=== PATIENT | female | born 1995 | race Caucasian/White ===

== ENCOUNTER 2019-07-16 13:25 | Inpatient (IN) | payer OTHER ==
[2019-07-16 14:50] VITALS: BMI 31.5
[2019-07-16] MEDS ORDERED: AMPICILLIN - 2 GM in SODIUM CHLORIDE 100 ML IVPB ONE (14:51)
[2019-07-16] MEDS ORDERED: ELECTROLYTE-148 SOLN 1,000 ML IV SCH (15:00)
[2019-07-16 15:10] LABS: BASO % 0.3 % (0-2.0); HEMATOCRIT 36.9 % (32.4-45.2); HEMOGLOBIN 12.2 GM/dL (10.7-15.3); LYMPH % 7.3 % (8-40); MCH 29.8 pg (25.7-33.7); MCHC 33.1 g/dl (32.0-36.0); MEAN PLT VOLUME 10.2 fl (7.5-11.1); MONO % 2.9 % (3.8-10.2); NEUT % 89.5 % (42.8-82.8); PLATELET COUNT 275 K/MM3 (134-434); RDW 14.9 % (11.6-15.6); WHITE BLOOD COUNT 13.1 K/mm3 (4.0-10.0)
[2019-07-16] MEDS ORDERED: FENTANYL/BUPIVACAINE/NS/PF - PCEA - 50 ML DISP.SYRIN EP ONE ×2 (15:20→19:09)
[2019-07-16 15:27] LABS: INR 0.91 (0.83-1.09); PROTHROMBIN TIME (PATIENT) 10.7 SEC (9.7-13.0)
[2019-07-16 15:30] LABS: ACTIVATED PTT 25.1 SECONDS (25.2-36.5)
[2019-07-16 15:40] LABS: ALBUMIN 2.6 g/dl (3.4-5.0); BILIRUBIN,TOTAL 0.2 mg/dL (0.2-1); BLOOD UREA NITROGEN 9.5 mg/dL (7-18); CALCIUM 8.3 mg/dL (8.5-10.1); CREATININE 0.7 mg/dL (0.55-1.3); POTASSIUM 3.9 mmol/L (3.5-5.1); TOT PROT 6.6 g/dl (6.4-8.2)
--- NOTE | 2019-07-16 15:41 | HP ---
Past Medical History - Primary Care Physician PCP:: Zonia Chew - Admission Chief Complaint: 23 yrs , 41 weeks gestation brought by ambulence inlabor . onset LP since 11.00 Pm 07/15/19 History of Present Illness: pt gas care at [facility] in [place] . wt gain 48 lbs no chart available attempts made to obtain records unsuccessful pt has no information about her reports h/o sonogram. Single fetus , cephalic presentation she went at 2.[address] [facility] for labor evaluation, she was sent home due to early labor , 2cmm, she was told , she was dehydrated she gives h/o planned induction of labor for date 07/19/19 History Source: Patient - Past Medical History ALIGNER: Yes: Other (none known) Cardiovascular: Yes: Other (declines) Pulmonary: Yes: Other (none) Gastrointestinal: Yes: Other (none known to her) Hepatobiliary: Yes: Other (not awre any) Renal/: Yes: Other (denies any problems) Reproductive: Yes: Other (none known) ...: 1 ...Para: 0 ...Term: 0 ...: 0 ...Spon : 0 ...Induced : 0 ...Multiple Gestation: 0 ... Weeks Gestation by Dates: 40.6 ...EDC by Dates: 07/10/19 Heme/Onc: Yes: Other (none known) Infectious Disease: Yes: Other (not known) Musculoskeletal: Yes: Other (declines) Rheumatology: Yes: Other (no) Endocrine: Yes: Other (no) Dermatology: Yes: Other (none known) - Past Surgical History Past Surgical History: Yes: None Hx Myomectomy: No Hx Transabdominal Cerclage: No - Smoking History Smoking history: Never smoked Have you smoked in the past 12 months: No - Alcohol/Substance Use Hx Alcohol Use: No History of Substance Use: reports: None - Social History History of Recent Travel: No Home Medications - Allergies Allergies/Adverse Reactions: Allergies Allergy/AdvReac Type Severity Reaction Status Date / Time No Known Allergies Allergy Verified 07/16/19 14:32 - Home Medications Home Medications: Ambulatory Orders Prenat 115/Iron Fum/Folic/Dss [ 19 Tablet] 1 tab PO DAILY 07/16/19 Physical Exam - Maternity Vital Signs: Vital Signs Temperature 98.5 F 07/16/19 14:40 Pulse Rate 106 H 07/16/19 14:40 Respiratory Rate 17 07/16/19 14:40 Blood Pressure 130/85 07/16/19 14:40 O2 Sat by Pulse Oximetry (%) Selected Entries 07/16/19 14:34 Weight 178 lb Constitutional: Yes: Well Nourished Eyes: Yes: WNL HENT: Yes: WNL Neck: Yes: WNL Cardiovascular: Yes: WNL, Regular Rate and Rhythm Lungs: Clear to auscultation Breast(s): Yes: WNL - Abdominal Exam/OB Fundal Height: 40 Number of Fetuses: Single Presentation: Vertex Contractions: Yes Regularity: Regular (2-4 min) Intensity: Mod/Strong Monitor Mode: External Heart Rate (range): 140-150 Heart Rate Location: [facility] Category: I Accelerations: Uniform Decelerations: None - Vaginal Exam/OB Vaginal Bleediing: No Speculum Exam: No Dilatation (cm): 5 Effacement (%): 100 Amniotic Membrane Status: Intact Presentation: Vertex/Position (exam at 2.00 PM) Station: -2 - Physical Exam Musculoskeletal: Yes: WNL Extremities: Yes: WNL. No: Calf Tenderness Edema: Yes Edema: LLE: 1+, RLE: 1+ Deep Tendon Reflex Grade: Normal +2 ...Motor Strength: WNL Psychiatric: Yes: WNL, Alert, Oriented - Labs Lab Results: CBC, BMP 07/16/19 14:55 Laboratory Tests 07/16/19 07/16/19 07/16/19 14:17 14:55 14:55 PT with INR 10.70 INR 0.91 PTT (Actin FS) 25.1 L Sodium 136 Potassium 3.9 Chloride 106 Carbon Dioxide 19 L BUN 9.5 Creatinine 0.7 Random Glucose 108 H AST 13 L ALT 12 L Total Protein 6.6 Albumin 2.6 L HIV 1&2 Antibody Screen Negative HIV P24 Antigen Negative Problem List - Problems (1) Post-term , 40-42 weeks of gestation Code(s): O48.0 - POST-TERM (2) with care elsewhere Code(s): Z34.90 - ENCNTR FOR SUPRVSN OF NORMAL , UNSP, UNSP TRIMESTER Qualifiers: Trimester: unspecified trimester Qualified Code(s): Z34.90 - Encounter for supervision of normal , unspecified, unspecified trimester (3) Labor established Code(s): KPI7638 - Assessment/Plan 23 yrs ,41 weeks gestation in active labor, gbs unknown , care elsewhere( [facility] } Plan Gbs prophylaxis with Ampicillin epidural for labor analgesia trial vaginal delivery
[2019-07-16] MEDS ORDERED: FENTANYL/BUPIVACAINE/NS/PF - PCEA - 50 ML DISP.SYRIN EP SCH (17:00)
[2019-07-16] MEDS ORDERED: OXYTOCIN 30 UNITS in 0.9% NS 30 UNIT/500 ML INFUS.BAG IVPB SCH (17:00)
[2019-07-16] MEDS ORDERED: OXYTOCIN 30 UNITS in 0.9% NS 30 UNIT/500 ML INFUS.BAG IVPB ONE (17:07)
[2019-07-16 17:30] LABS: EPI CELLS 4.8 /HPF (0-5/HPF); HYALINE CASTS 12 /lpf (0-8); PH,URINE 6.5 (5.0-8.0); URINE APPEARANCE CLEAR; URINE BACTERIA 2.6 /hpf (NEGATIVE); URINE BILIRUBIN NEGATIVE (NEGATIVE); URINE COLOR YELLOW; URINE GLUCOSE (UA) NEGATIVE (NEGATIVE); URINE KETONE 1+ (NEGATIVE); URINE LEUK ESTERASE NEGATIVE (NEGATIVE); URINE NITRITE NEGATIVE (NEGATIVE); URINE PROTEIN 1+ (NEGATIVE); URINE RBC 2 /hpf (0-4); URINE UROBILINOGEN 0.2 mg/dL (0.2-1.0); URINE WBC 0 /hpf (0-5)
[2019-07-16 17:43] LABS: COCAINE, UR NEGATIVE ng/ml (CUTOFF=300); METHADONE, UR NEGATIVE ng/ml (CUTOFF=300); OPIATES, URI NEGATIVE ng/ml (CUTOFF=300); PHENCYCLIDINE,URINE NEGATIVE ng/ml (CUTOFF=25); URINE AMPHETAMINES NEGATIVE ng/ml (CUTOFF=500); URINE BARBITURATES NEGATIVE ng/ml (CUTOFF=200); URINE BENZODIAZEPINES NEGATIVE ng/ml (CUTOFF=200)
[2019-07-16] MEDS ORDERED: AMPICILLIN SODIUM 1 GM VIAL ONE ×2 (18:05→22:31)
--- NOTE | 2019-07-16 18:48 | PN ---
Progress Note, Labor Vaginal Exam #1 Labor Exam Date: 07/16/19 Labor Exam Time: 18:15 Heart Rate (range): 130 Dilatation: 7-8 Effacement (%): 100 Amniotic Membrane Status: Intact Presentation: Vertex/Position Station: -1 Remarks: fhr cat-1 uc 2 min -3 min epidural given at 3.40 pM Pitocin augmentation started at 5.[address] iv ampicillin prophylaxis plan ct trial of labor Selected Entries 07/16/19 07/16/19 14:40 18:15 Temperature 98.5 F Pulse Rate 76 Blood Pressure 138/76 Vaginal Exam #2 Labor Exam Date: 07/16/19 Labor Exam Time: 19:30 Heart Rate (range): 150 Dilatation: 9 Effacement (%): 100 Amniotic Membrane Status: Ruptured (arom clear light meconium) Presentation: Vertex/Position Station: 0 (0/+1) Remarks: uc q 2 min fhr cat-1 Selected Entries 07/16/19 07/16/19 19:35 19:45 Temperature Oral Source Pulse Rate 91 H Blood Pressure 132/73 Selected Entries 07/16/19 19:35 Temperature 98.9 F Vaginal Exam #3 Labor Exam Date: 07/16/19 Labor Exam Time: 20:12 Heart Rate (range): 150 Dilatation: 10 Effacement (%): 100 Amniotic Membrane Status: Ruptured Presentation: Vertex/Position Station: +2 Remarks: pt pushing Selected Entries 07/16/19 20:15 Pulse Rate 102 H Blood Pressure 133/81
[2019-07-16] MEDS ORDERED: AMPICILLIN - 1 GM in SODIUM CHLORIDE 100 ML IVPB SCH (18:51)
[2019-07-16] MEDS ORDERED: OXYTOCIN 20 UNITS in 0.9% NS 20 UNIT/1,000 ML INFUS.BAG IV ONE (20:23)
[2019-07-16] MEDS ORDERED: LIDOCAINE HCL 1% PRESERVATIVE FREE - 30ML VIAL ONE (20:28)
--- NOTE | 2019-07-16 21:28 | PN ---
Delivery - Delivery Vaginal Delivery: No Problems, Spontaneous ( vx, mi psition, cord around neckx1 released , before delivery of shoulder , oral & nasal suction done at perineum before delivery of shoulder . median episiotomy was given under local anesthesia , placenta & membranes delievered completely , cord segment was collected for cord gas, cord blood collected , trivascular cord. episiotomy was sutured in layers with chr catgut #2/0 .pr exam mucosa & sphincter was intact) Type of Anesthesia: Epidural EBL (cc): 350 (rodarte removed after pt started pushing, output 600 ml ) Delivery, Single - Stages of Labor Date 1st Stage Initiatied: 07/16/19 Time 1st Stage Initiated: 05:00 Date 2nd Stage Initiated: 07/16/19 Time 2nd Stage Initiated: 20:12 Date of Delivery: 07/16/19 Time of Delivery: 20:37 Date Placenta Delivered: 07/16/19 Time Placenta Delivered: 20:44 Placenta: Yes: Spontaneous, Uterine Exploration - Condition of Production Controller/Delinquency Prevention Officer Present: No Gender: Female Weight: 7 lb 7 oz Position: Left, OA (cord around neckx1) Total Hours ROM (Hrs/Mins): , [id number], Mec - 1 Minute Total Score: 9 5 Minutes Total Score: 9 - [place] Feeding Plan Initial Plan: Exclusive throughout hospitalization Remarks - Remarks Remarks: 23 yrs 41 weeks , gbs [place] , no chart available, pnc at [facility] gbs prophylaxis with Iv Ampicillin x2 doses given intrapartum course uneventful
[2019-07-16] MEDS ORDERED: METHYLERGONOVINE MALEATE 0.2 MG/1 ML AMP IM PRN (21:31)
[2019-07-16] MEDS ORDERED: oxyCODONE HCL 5 MG TABLET PO PRN (21:31)
[2019-07-16] MEDS ORDERED: BENZOCAINE 28 GM HEMORRHOIDAL OINTMENT TP PRN (21:31)
[2019-07-16] MEDS ORDERED: BENZOCAINE 20% 57 GM BOTTLE TP PRN (21:31)
[2019-07-16] MEDS ORDERED: BISACODYL 10 MG SUPP.RECT RC PRN (21:31)
[2019-07-16] MEDS ORDERED: WITCH HAZEL 50% (TUCKS) 40 PAD/JAR PAD TP PRN (21:31)
[2019-07-16] MEDS ORDERED: OXYTOCIN 20 UNITS in 0.9% NS 20 UNIT/1,000 ML INFUS.BAG IV SCH (21:45)
[2019-07-17] MEDS: IBUPROFEN 600 MG TABLET (FP) PO PRN ×2 (03:24→21:33)
[2019-07-17] MEDS: ACETAMINOPHEN 325 MG TABLET (FP) PO PRN ×2 (03:25→21:32)
[2019-07-17 08:10] LABS: BASO % 0.3 % (0-2.0); EOS % 0.2 % (0-4.5); HEMATOCRIT 28.4 % (32.4-45.2); HEMOGLOBIN 9.3 GM/dL (10.7-15.3); LYMPH % 15.1 % (8-40); MCH 29.9 pg (25.7-33.7); MCHC 32.6 g/dl (32.0-36.0); MEAN CELL VOLUME 91.7 fl (80-96); MEAN PLT VOLUME 9.9 fl (7.5-11.1); MONO % 7.9 % (3.8-10.2); NEUT % 76.5 % (42.8-82.8); PLATELET COUNT 218 K/MM3 (134-434); RDW 15.1 % (11.6-15.6); WHITE BLOOD COUNT 12.8 K/mm3 (4.0-10.0)
--- NOTE | 2019-07-17 08:34 | PN ---
Post Progress Note - Subjective Subjective: c/o cramps perineal soreness voiding without difficulty Post Day: 1 Type of Delivery: Vital Signs: Vital Signs Temperature 98.1 F 07/17/19 06:00 Pulse Rate 109 H 07/17/19 06:00 Respiratory Rate 18 07/17/19 06:00 Blood Pressure 110/64 07/17/19 06:00 O2 Sat by Pulse Oximetry (%) 100 07/16/19 20:15 Breast Exam: Yes: Soft, Other (atempting BF). No: Engorged Uterus: Yes: Fundus Firm, Fundus below umbilicus, Non-tender Lochia: Yes: Rubra Lochia, amount: Moderate Extremities: Yes: Calves non-tender Perineum: Yes: Episiotomy (wound clean ) Activity: Ambulating - Labs Labs: CBC WBC 13.1 K/mm3 (4.0-10.0) H 07/16/19 14:55 RBC 4.10 M/mm3 (3.60-5.2) 07/16/19 14:55 Hgb 12.2 GM/dL (10.7-15.3) 07/16/19 14:55 Hct 36.9 % (32.4-45.2) 07/16/19 14:55 MCV 90.0 fl (80-96) 07/16/19 14:55 MCH 29.8 pg (25.7-33.7) 07/16/19 14:55 MCHC 33.1 g/dl (32.0-36.0) 07/16/19 14:55 RDW 14.9 % (11.6-15.6) 07/16/19 14:55 Plt Count 275 K/MM3 (134-434) 07/16/19 14:55 MPV 10.2 fl (7.5-11.1) 07/16/19 14:55 Absolute Neuts (auto) 11.7 K/mm3 (1.5-8.0) H 07/16/19 14:55 Neutrophils % 89.5 % (42.8-82.8) H 07/16/19 14:55 Lymphocytes % 7.3 % (8-40) L 07/16/19 14:55 Monocytes % 2.9 % (3.8-10.2) L 07/16/19 14:55 Eosinophils % 0.0 % (0-4.5) 07/16/19 14:55 Basophils % 0.3 % (0-2.0) 07/16/19 14:55 Nucleated RBC % 0 % (0-0) 07/16/19 14:55 Problem List - Problems (1) Post-term , 40-42 weeks of gestation Code(s): O48.0 - POST-TERM (2) with care elsewhere Code(s): Z34.90 - ENCNTR FOR SUPRVSN OF NORMAL , UNSP, UNSP TRIMESTER Qualifiers: Trimester: unspecified trimester Qualified Code(s): Z34.90 - Encounter for supervision of normal , unspecified, unspecified trimester (3) Labor established Code(s): DXA5983 - (4) (normal spontaneous vaginal delivery) Code(s): O80 - ENCOUNTER FOR FULL-TERM UNCOMPLICATED DELIVERY (5) Encounter for care and examination after delivery Code(s): Z39.2 - ENCOUNTER FOR ROUTINE FOLLOW-UP Assessment/Plan stable ct pp care discharge tomorrow.
[2019-07-17] MEDS: PRENATAL VITAMINS W/ FOLIC ACID TABLET (FP) PO SCH (09:32)
[2019-07-17] MEDS: FERROUS SO4 325 MG TABLET (FP) PO SCH ×2 (09:32→18:02)
[2019-07-17] MEDS ORDERED: SENNOSIDES/DOCUSATE COMBO (SENNA PLUS) TABLET (UD) PO PRN (22:00)
--- NOTE | 2019-07-18 08:37 | DS ---
Physical Exam-WEEKDAY BABYSITTER Vital Signs: Vital Signs Temperature 98.3 F 07/17/19 22:00 Pulse Rate 89 07/17/19 22:00 Respiratory Rate 18 07/17/19 22:00 Blood Pressure 113/67 07/17/19 22:00 O2 Sat by Pulse Oximetry (%) 100 07/16/19 20:15 Constitutional: Yes: Well Nourished, Other (no c/o dizziness) Eyes: Yes: WNL HENT: Yes: WNL Neck: Yes: WNL Cardiovascular: Yes: WNL Respiratory: Yes: WNL Gastrointestinal: Yes: WNL ...Rectal Exam: Yes: WNL Renal/: Yes: WNL. No: CVA Tenderness - Left, CVA Tenderness - Right Pelvis: Yes: WNL ....Post : Yes: Uterus firm, Moderate lochia rubra (perineum epi wound healing) Breast(s): Yes: WNL (BF , soft, not engorged) Musculoskeletal: Yes: WNL Extremities: Yes: WNL. No: Calf Tenderness Edema: Yes Edema: LLE: 1+, RLE: 1+ Neurological: Yes: WNL ...Motor Strength: WNL Psychiatric: Yes: WNL, Alert, Oriented Labs: CBC, BMP 07/17/19 07:31 07/16/19 14:17 Delivery - Delivery Vaginal Delivery: No Problems, Spontaneous ( vx, mi psition, cord around neckx1 released , before delivery of shoulder , oral & nasal suction done at perineum before delivery of shoulder . median episiotomy was given under local anesthesia , placenta & membranes delievered completely , cord segment was collected for cord gas, cord blood collected , trivascular cord. episiotomy was sutured in layers with chr catgut #2/0 .pr exam mucosa & sphincter was intact) Type of Anesthesia: Epidural Episiotomy/Laceration: Midline EBL (cc): 350 (rodarte removed after pt started pushing, output 600 ml ) Delivery, Single - Stages of Labor Date 1st Stage Initiatied: 07/16/19 Time 1st Stage Initiated: 05:00 Date 2nd Stage Initiated: 07/16/19 Time 2nd Stage Initiated: 20:12 Date of Delivery: 07/16/19 Time of Delivery: 20:37 Time Placenta Delivered: 20:44 Placenta: Yes: Spontaneous, Uterine Exploration - Condition of Infant Plisse Machine Operator/Bail Bond Agent Present: No Gender: Female Weight: 7 lb 7 oz Position: Left, OA (cord around neckx1) Total Hours ROM (Hrs/Mins): , [id number], Mec - 1 Minute Total Score: 9 5 Minutes Total Score: 9 - [place] Feeding Plan Initial Plan: Exclusive throughout hospitalization Remarks - Remarks Remarks: 23 yrs 41 weeks , gbs [place] , no chart available, pnc at [facility] gbs prophylaxis with Iv Ampicillin x2 doses given intrapartum course uneventful pp course uneventful anemia counselled pericare instructions given Discharge Summary Problems reviewed: Yes Reason For Visit: LABOR ADMIT Current Active Problems Encounter for care and examination after delivery (Acute) Labor established (Acute) (normal spontaneous vaginal delivery) (Acute) Post-term , 40-42 weeks of gestation (Acute) with care elsewhere (Acute) Procedures: Principal: Hospital Course: uneventful Health Concerns: anemia Plan of Treatment: as directed Goals: maternal & well being Condition: Good - Instructions Diet, Activity, Other Instructions: Post Instructions DIET: Continue good diet high in protein, calcium, and iron rich foods. Drink at least eight (8) glasses of water daily in addition to other fluids. ct Regular diet MEDICATIONS: Continue vitamins and iron as previously directed. Motrin and Tylenol may be taken for minor discomfort. ACTIVITY: Mild to moderate exercise may be started in two (2) weeks. Take frequent rest periods. Resume normal activity after six (6) week check up. WOUND CARE OF OPERATIVE SITE: Continue use of perineal bottle until vaginal discharge stops. Keep area clean. Shower daily. Keep abdominal wound dry. Report any drainage or redness to physician. Tub baths, tampons and douches are not permitted for 6 weeks. PERICARE : SITZ BATHS tid prn ct Breast feeding & or Bottle feeding BREAST CARE: (For those that are not breast feeding): If engorgement occurs: Wear tight fitting bra. Take Tylenol or Motrin for pain. Apply cold packs (ice in bags to each breast ) FAMILY PLANNING: There are many control alternatives to pursue and they should be discussed at your first office visit. You may resume sexual activity after your six (6) week check up. (Remember, breast feeding is not a contraceptive) NEXT PHYSICIAN APPOINTMENT: Be certain to call for a four (4) week appointment, unless otherwise directed. RTC , 2 anselmo [facility] Call [phone] for appt Call Clinic or got to Emergency Dept if you have any of the following: Heavy vaginal bleeding Painful urination Leg pain Unusual odor noted to vaginal bleeding High fever Red streaking noted on breast Referrals: Zonia Chew MD [Staff Physician] - Disposition: HOME - Home Medications Comprehensive Discharge Medication List: Ambulatory Orders Prenat 115/Iron Fum/Folic/Dss [ 19 Tablet] 1 tab PO DAILY 07/16/19 Acetaminophen [Tylenol .Regular Strength -] 650 mg PO Q3H PRN tablet 07/17/19 Benzocaine [Americaine 20% [place] -] 1 spray TP PRN PRN #1 bottle 07/17/19 Ferrous Sulfate [Feosol] 325 mg PO BIDWM #60 tab 07/17/19 Ibuprofen [Motrin -] 200 mg PO Q4H PRN tablet 07/17/19 Vitamins (Sjr) - 1 tab PO DAILY #30 tablet 07/17/19 Sennosides/Docusate Sodium [Pericolace -] 2 tablet PO HS PRN #60 tablet Witch Barbara 50% (Tucks) [Tucks Pads -] 1 pad TP PRN PRN #1 pack 07/17/19 Prescription Drug Monitoring Program (I-STOP) results: I-STOP reviewed and no issues identified
[2019-07-18 08:38] VITALS: BP 111/62; PULSE 81; TEMP 97.8
[2019-07-18] MEDS: PRENATAL VITAMINS W/ FOLIC ACID TABLET (FP) PO SCH (09:20)
[2019-07-18] MEDS: FERROUS SO4 325 MG TABLET (FP) PO SCH (09:21)
== END 2019-07-18 12:45 | disposition home or self-care (01) | DRG 560 ==
LOC: JDEL 13:25 → JLDR 14:08 → J3W 22:58
PROVIDERS: ADMIT Obstetrics & Gynecology; ATTEND Obstetrics & Gynecology
PROC: 0W8NXZZ Division of Female Perineum, External Approach (ICD-10-PCS; principal; 2019-07-16)
PROC: 10E0XZZ Delivery of Products of Conception, External Approach (ICD-10-PCS; 2019-07-16)
DX: O48.0 Post-term pregnancy (principal); Z3A.41 41 weeks gestation of pregnancy; O69.81X0 Labor and delivery complicated by cord around neck, without compression, not applicable or unspecified; Z37.0 Single live birth
CPT/HCPCS: 36415; 36600; 59409; 80048; 80053; 80307; 81003; 82803; 85025; 85610; 85730; 86593; 86762; 86850; 86900; 86901; 87340; 87389

== ENCOUNTER 2021-04-19 13:36 | Emergency (ER) | payer OTHER ==
[2021-04-19 14:02] VITALS: BP 117/76; PULSE 76; TEMP 98.5; BMI 31.1
[2021-04-20 14:07] LABS: SARS-CoV-2 NAA Not Detected (Not Detected)
== END 2021-04-19 15:25 | disposition home or self-care (01) ==
LOC: JER 13:36
DX: R05 Cough (principal); R51.9 Headache, unspecified; J02.9 Acute pharyngitis, unspecified; Z11.52 Encounter for screening for COVID-19
CPT/HCPCS: 99283-25; C9803; U0003; U0005

== ENCOUNTER 2021-10-09 09:37 | Emergency (ER) | payer OTHER ==
[2021-10-09 09:52] VITALS: BP 127/82; PULSE 96; TEMP 98.9; BMI 30.5
[2021-10-09] MEDS ORDERED: KETOROLAC TROMETHAMINE 30 MG/1 ML VIAL ONE (10:41)
[2021-10-09] MEDS ORDERED: KETOROLAC TROMETHAMINE 60 MG/2 ML VIAL IM ONE (10:41)
[2021-10-09 12:11] LABS: EPI CELLS >36 /uL (0-25.1); HYALINE CASTS 1 /uL (0-3.1); PH,URINE 6.5 (5.0-8.0); URINE APPEARANCE CLEAR; URINE BACTERIA 3508 /uL (0-1359); URINE BILIRUBIN NEGATIVE (NEGATIVE); URINE COLOR YELLOW; URINE GLUCOSE (UA) NEGATIVE (NEGATIVE); URINE KETONE NEGATIVE (NEGATIVE); URINE LEUK ESTERASE TRACE (NEGATIVE); URINE NITRITE NEGATIVE (NEGATIVE); URINE PROTEIN NEGATIVE (NEGATIVE); URINE RBC 20 /uL (0-23.9); URINE UROBILINOGEN 0.2 mg/dL (0.2-1.0); URINE WBC 24 /uL (0-25.8)
[2021-10-09 12:25] LABS: HCG,QUALITATIVE URINE NEGATIVE
== END 2021-10-09 13:14 | disposition home or self-care (01) ==
LOC: JERFT 09:37
PROC: 3E023NZ Introduction of Analgesics, Hypnotics, Sedatives into Muscle, Percutaneous Approach (ICD-10-PCS; principal; 2021-10-09)
DX: M54.50 Low back pain, unspecified (principal)
CPT/HCPCS: 36415; 81003; 84703; 87086; 87491; 87591; 99284-25

== ENCOUNTER 2023-04-26 13:17 | Emergency (ER) | payer OTHER ==
[2023-04-26 13:39] VITALS: TEMP 98.1; BMI 28.0
[2023-04-26] MEDS ORDERED: LORazepam 2 MG TABLET PO ONE (14:02)
[2023-04-26] MEDS ORDERED: LORazepam 1 MG TABLET ONE (14:30)
[2023-04-26 15:29] LABS: BASO % 0.4 % (0-2.0); EOS % 0.4 % (0-4.5); HEMATOCRIT 40.7 % (32.4-45.2); HEMOGLOBIN 14.3 GM/dL (10.7-15.3); LYMPH % 23.6 % (8-40); MCH 29.6 pg (25.7-33.7); MEAN CELL VOLUME 84.6 fl (80-96); MEAN PLT VOLUME 9.1 fl (7.5-11.1); NEUT % 70.6 % (42.8-82.8); PLATELET COUNT 382 10^3/uL (134-434); RBC 4.82 M/mm3 (3.60-5.2); RDW 13.2 % (11.6-15.6); WHITE BLOOD COUNT 7.9 K/mm3 (4.0-10.0)
[2023-04-26 15:52] LABS: POTASSIUM 3.9 mmol/L (3.5-5.1)
[2023-04-26 15:56] LABS: BLOOD UREA NITROGEN 11.1 mg/dL (7-18)
[2023-04-26 15:59] LABS: CREATININE 0.9 mg/dL (0.55-1.3)
[2023-04-26 16:00] LABS: BILIRUBIN,TOTAL 0.2 mg/dL (0.2-1); TOT PROT 8.2 g/dl (6.4-8.2)
[2023-04-26 16:29] VITALS: BP 109/76; PULSE 96; RESP 17
== END 2023-04-26 16:41 | disposition home or self-care (01) ==
LOC: JER 13:17
DX: F41.9 Anxiety disorder, unspecified (principal); R07.9 Chest pain, unspecified; R00.0 Tachycardia, unspecified
CPT/HCPCS: 36415; 80053; 84484; 85025; 99283-25

== ENCOUNTER 2024-02-25 11:22 | Emergency (ER) | payer OTHER ==
[2024-02-25 11:40] VITALS: BMI 29.0
[2024-02-25] MEDS ORDERED: ACETAMINOPHEN 325 MG TABLET (FP) ONE (12:52)
[2024-02-25] MEDS ORDERED: METOCLOPRAMIDE HCL INJECTION 10 MG/2 ML VIAL ONE (12:52)
[2024-02-25 12:56] LABS: URINE APPEARANCE CLEAR; URINE BILIRUBIN NEGATIVE (NEGATIVE); URINE COLOR YELLOW; URINE GLUCOSE (UA) NEGATIVE (NEGATIVE); URINE KETONE NEGATIVE (NEGATIVE); URINE LEUK ESTERASE NEGATIVE (NEGATIVE); URINE NITRITE NEGATIVE (NEGATIVE); URINE PROTEIN NEGATIVE (NEGATIVE); URINE UROBILINOGEN 0.2 mg/dL (0.2-1.0)
[2024-02-25 12:57] LABS: BASO % 0.7 % (0-2.0); EOS % 0.4 % (0-4.5); HCG,QUALITATIVE URINE Negative; HEMATOCRIT 37.9 % (32.4-45.2); HEMOGLOBIN 12.7 GM/dL (10.7-15.3); LYMPH % 22.9 % (8-40); MCH 28.3 pg (25.7-33.7); MCHC 33.5 g/dl (32.0-36.0); MEAN CELL VOLUME 84.5 fl (80-96); PLATELET COUNT 360 10^3/uL (134-434); RBC 4.49 M/mm3 (3.60-5.2); RDW 13.9 % (11.6-15.6); WHITE BLOOD COUNT 7.5 K/mm3 (4.0-10.0)
[2024-02-25] MEDS: METOCLOPRAMIDE HCL INJECTION 10 MG/2 ML VIAL IVPUSH ONE (12:57)
[2024-02-25] MEDS: SODIUM CHLORIDE 0.9% 500 ML INFUS.BAG IV ONE (12:57)
[2024-02-25] MEDS: ACETAMINOPHEN 325 MG TABLET (FP) PO ONE (12:57)
[2024-02-25 13:12] LABS: POTASSIUM 4.6 mmol/L (3.5-5.1)
[2024-02-25 13:15] LABS: CALCIUM 9.5 mg/dL (8.5-10.1)
[2024-02-25 13:16] LABS: ALBUMIN 3.7 g/dl (3.4-5.0); BLOOD UREA NITROGEN 10.9 mg/dL (7-18)
[2024-02-25 13:19] LABS: CREATININE 0.9 mg/dL (0.55-1.3)
[2024-02-25 13:20] LABS: TOT PROT 7.7 g/dl (6.4-8.2)
[2024-02-25 13:21] LABS: BILIRUBIN,TOTAL 0.3 mg/dL (0.2-1)
[2024-02-25 14:18] VITALS: BP 110/78; PULSE 72; RESP 19; TEMP 97.9
== END 2024-02-25 14:18 | disposition home or self-care (01) ==
LOC: JER 11:22
PROC: 3E033GC Introduction of Other Therapeutic Substance into Peripheral Vein, Percutaneous Approach (ICD-10-PCS; principal; 2024-02-25)
DX: R51.9 Headache, unspecified (principal); H53.8 Other visual disturbances; R53.1 Weakness; R42 Dizziness and giddiness
CPT/HCPCS: 36415; 80053; 81003; 84703; 85025; 87086; 93005; 93010; 99284-25

== ENCOUNTER 2024-03-17 23:44 | Emergency (ER) | payer OTHER ==
[2024-03-17 23:56] VITALS: BP 133/86; PULSE 89; RESP 17; TEMP 97.8; BMI 29.0
== END 2024-03-18 01:06 | disposition home or self-care (01) ==
LOC: JER 23:44
DX: R00.2 Palpitations (principal); F41.9 Anxiety disorder, unspecified; N94.6 Dysmenorrhea, unspecified
CPT/HCPCS: 93005; 93010; 99284-25